=== PATIENT | female | born 1945 | race Caucasian/White ===

== ENCOUNTER 2023-06-28 11:11 | Outpatient (CLI) | payer OTHER, SELFPAY ==
[2023-06-28 18:46] LABS: Hematocrit 40.9 % (37.0-47.0); Hemoglobin 13.1 g/dL (12.0-15.0); Immature Platelet Fraction Pct 21.6 % (0.9-11.2); Mean Corpuscular Hemoglobin 29.4 pg (26-34); Mean Corpuscular Volume 91.9 fl (80-100); Mean Platelet Volume 15.1 fl (7.4-10.4); Red Blood Count 4.45 M/mm3 (4.2-5.4); Red Cell Distribution Width 12.3 % (11.5-14.5); White Blood Count 3.9 K/mm3 (4.5-10.0)
[2023-06-28 18:56] LABS: Alanine Aminotransferase 19 U/L (6-35); Albumin Level 4.7 g/dL (3.5-5.1); Alkaline Phosphatase 91 U/L (38-126); Anion Gap 7 mmol/L (4-12); Aspartate Amino Transferase 34 U/L (14-36); Bilirubin,Total 0.7 mg/dL (0.2-1.3); Blood Urea Nitrogen 19 mg/dL (7-17); Calcium 9.6 mg/dL (8.4-10.2); Carbon Dioxide 25 mmol/L (22-30); Chloride 105 mmol/L (98-107); Estimated Glomerular Filt Rate > 60; Glucose 106 mg/dL (65-110); Potassium 4.4 mmol/L (3.4-5.0); Sodium 137 mmol/L (137-145)
[2023-06-28 19:11] LABS: Platelet Count Result 17 k/mm3 (150-375)
== END 2023-06-28 11:12 | disposition home or self-care (01) ==
PROVIDERS: PCP Nurse Practitioner Adult Health; Visit Provider Nurse Practitioner Adult Health
DX: R53.83 Other fatigue (principal)
CPT/HCPCS: 36415; 80053; 84443; 85027; 85055

== ENCOUNTER 2023-06-29 08:18 | Outpatient (CLI) | payer OTHER, SELFPAY ==
[2023-06-29 20:01] LABS: Hematocrit 39.9 % (37.0-47.0); Hemoglobin 12.8 g/dL (12.0-15.0); Immature Platelet Fraction Pct 21.1 % (0.9-11.2); Mean Corpuscular HGB Conc 32.1 g/dl (32-36); Mean Corpuscular Hemoglobin 29.8 pg (26-34); Mean Corpuscular Volume 92.8 fl (80-100); Mean Platelet Volume 14.9 fl (7.4-10.4); Red Cell Distribution Width 12.6 % (11.5-14.5); White Blood Count 4.2 K/mm3 (4.5-10.0)
[2023-06-29 20:56] LABS: Platelet Count Result 15 k/mm3 (150-375)
[2023-06-29 21:05] LABS: Lymphocytes Absolute Manual 1.76 K/mm3 (1.1-4.5); Monocytes Absolute Manual 0.29 K/mm3 (0.1-0.90); Monocytes Percent Manual 7 % (3-9); Neutrophils Percent Manual 51 % (46-73); Platelet Estimate Decreased (Adequate); Total Cells Counted 100
[2023-06-29 21:06] LABS: Schistocytes None Seen
== END 2023-06-29 08:19 | disposition home or self-care (01) ==
LOC: ANHBWCLAB 08:19
PROVIDERS: PCP Nurse Practitioner Adult Health; Visit Provider Nurse Practitioner Adult Health
DX: D69.6 Thrombocytopenia, unspecified (principal)
CPT/HCPCS: 36415; 85025; 85055

== ENCOUNTER 2024-01-03 11:51 | Outpatient (CLI) | payer OTHER, SELFPAY ==
[2024-01-03 19:13] LABS: Hematocrit 39.1 % (37.0-47.0); Hemoglobin 12.7 g/dL (12.0-15.0); Immature Platelet Fraction Pct 18.8 % (0.9-11.2); Mean Corpuscular HGB Conc 32.5 g/dl (32-36); Mean Corpuscular Hemoglobin 30.7 pg (26-34); Mean Corpuscular Volume 94.4 fl (80-100); Mean Platelet Volume 13.5 fl (7.4-10.4); Platelet Count Result 28 k/mm3 (150-375); Red Blood Count 4.14 M/mm3 (4.2-5.4); Red Cell Distribution Width 11.8 % (11.5-14.5); White Blood Count 4.6 K/mm3 (4.5-10.0)
[2024-01-03 19:33] LABS: Alanine Aminotransferase 16 U/L (6-35); Albumin Level 4.4 g/dL (3.5-5.1); Alkaline Phosphatase 91 U/L (38-126); Anion Gap 3 mmol/L (4-12); Aspartate Amino Transferase 34 U/L (14-36); Bilirubin,Total 0.7 mg/dL (0.2-1.3); Blood Urea Nitrogen 19 mg/dL (7-17); Calcium 9.9 mg/dL (8.4-10.2); Carbon Dioxide 31 mmol/L (22-30); Chloride 104 mmol/L (98-107); Estimated Glomerular Filt Rate > 60; Glucose 114 mg/dL (65-110); Potassium 4.4 mmol/L (3.4-5.0); Sodium 138 mmol/L (137-145)
== END 2024-01-03 11:52 | disposition home or self-care (01) ==
PROVIDERS: PCP Nurse Practitioner Adult Health; Visit Provider Nurse Practitioner Adult Health
DX: D69.6 Thrombocytopenia, unspecified (principal)
CPT/HCPCS: 36415; 80053; 85027; 85055

== ENCOUNTER 2024-07-04 13:29 | Outpatient (CLI) | payer OTHER, SELFPAY ==
--- OUTSIDE RECORDS SUMMARY | 2024-07-04 13:41 | XMS_ITS | Encounter Summary ---
Author Organization [facility] Address [address] [place] [address] Phone Care Team Providers Care Brass Molder Helper Name Role Phone Lisa Lanier NP Primary Care Provider [phone] Encounter Details Date Type Department Care Team (Late st Contact Info) Description 08/17/2023 Telephone [facility] Oncology [address] [place] [address] Medical [facility] B [address] [phone] Eleuterio Capps MD [address] [place] [id number] Social History Tobacco Use Types Packs/Day Years Used Date Smoking Tobacco: Never Smokeless Tobacco: Never AUDIT-C Answer Date Recorded Q1: How often do you have a drink containing alcohol? Never 07/29/2023 Q2: How many drinks containi ng alcohol do you have on a typical day when you are drinking? Patient does not drink Q3: How often do you have si x or more drinks on one occasion? Never 07/29/2023 Personal Safety Answer Date Recorded Have you ever been in or are you currently in a harmful physical or emotional relationship or is someone making you feel afraid or unsafe? 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
--- OUTSIDE RECORDS SUMMARY | 2024-07-04 13:41 | XMS_ITS | Referral Summary ---
Author Organization [facility] Address [address] [place] [address] Care Team Providers Care Security Advisor Name Role Phone Lisa Lanier NP Primary Care Provider [phone] Allergies Active Allergy Reactions Criticality Noted Date Comments Scallops Hives,Shortness of breath High 05/25/2019 Medications sertraline (ZOLOFT) 100 mg tablet Take 1 tablet (100 mg total) by mouth daily Active benzonatate (TESSALON) 100 mg capsuleIndicatio ns:Cough Take 1 capsule (100 mg total) by mouth every 8 (eight) hours 21 capsule 05/25/2019 Active azithromycin (ZITHROMAX) 250 mg tablet Take 2 tablets the first day, then 1 tablet daily for 4 days 6 tablet 05/25/2019 Active cyanocobalamin (Vitamin B-12) 100 mcg tabletIndication s:Prevention of Vitamin B12 Deficiency Take 1 tablet (100 mcg total) by mouth daily Active ascorbic acid (ascorbic acid with landy hips) 500 mg tablet,chewable Take 1 tablet/chew tab (500 mg total) by mouth 3 (three) times a day Active cholecalciferol (VITAMIN D-3) 3,000 unit tablet Take 0.025 tablets (75 Units total) by mouth daily Active lactobacillus combination no.4 3 billion cell capsule Take 3 billion CFU/mL by mouth daily Active melatonin 5 mg tablet Take 1 tablet (5 mg total) by mouth daily Active Active Problems Problem Noted Date Diagnosed Date Thrombocytopenia 07/29/2023 Social History Tobacco Use Types Packs/Day Years [...] on file 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 Advance Directives For more information, please contact: [phone] Documents on File Type Date Recorded Patient Chemical Engineer Expl anation ADVANCE DIRECTIVE 08/02/2023 7:51 AM POWER OF BELT SANDER FOR HEALTH CARE Care Teams Security Advisor Relationship Specialty Start Date End Date Lisa Lanier NP [address] [place] [id number] PCP - General Nurse Practitioner 06/30/23
--- OUTSIDE RECORDS SUMMARY | 2024-07-04 13:41 | XMS_ITS | Clinical Summary ---
Author Organization [facility] Address [address] [place] [address] Care Team Providers Care Home Restoration Service Supervisor Name Role Phone Lisa Lanier NP Primary Care Provider [phone] Allergies Active Allergy Reactions Criticality Noted Date [...] Problem Noted Date Diagnosed Date Thrombocytopenia 07/29/2023 Surgical History Surgery Date Site/Laterality Comments HYSTERECTOMY Medical History Medical History Date Comments Anxiety Depression COPD (chronic obstructive pulmonary disease) (HC C) Seizures (HCC) Thrombocytopenia Thrombocytopenia Thrombocytopenia Social History Tobacco Use Types Packs/Day Years [...] on file 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 Gender Identity Not on file Sexual Orientation Not on file Obstetrics History Last Filed Vital Signs Vital Sign Reading [...] 10/25/2023 10:13 AM CDT Plan of Treatment Health Maintenance Due Date Last Done Comments Depression Screening 1945 Fall Risk Assessment 1945 Osteoporosis Screening-Bone Density Scan 1945 Hepatitis B Screening 11/08/1961 Pneumococcal vaccine 65+ (1 of 1 - PCV) 11/08/1993 10/19/1993 Zoster Vaccine (1 of 2) 11/08/1993 Well Visit 65+ 11/08/2008 DTaP/Tdap/Td Vaccine (2 - Td or Tdap) 05/23/2017 05/24/2007 Covid-19 Vaccine (3 - 2023-2 5 season) 2023 10/21/2020, 09/23/2020 Influenza Vaccine (Season Ended) 2024 11/07/2010, 10/23/2008, 01/01/2008, Additional history exists Insurance [facility] Advance Directives For more information, please contact: [phone] Documents on File Type Date Recorded Patient Caseworker Expl anation ADVANCE DIRECTIVE 08/02/2023 7:51 AM POWER OF DOCTOR OSTEOPATHIC FOR HEALTH CARE Care Teams Home Restoration Service Supervisor Relationship Specialty Start Date End Date Lisa Lanier NP [address] [place] [id number] PCP - General Nurse Practitioner 06/30/23
--- OUTSIDE RECORDS SUMMARY | 2024-07-04 13:41 | XMS_ITS | Continuity of Care Document ---
Author Name [facility] Organization [facility] Care Team Providers Care Consumer Relations Complaint Clerk Name Role Phone [facility] Unavailable Unavailable Problems Combined list of problems from Department of Defense and Veterans Affairs facilities. It does not include entries that were removed or entered in error. Problem Status Onset Date Problem Type Date of Resolution Comments Source Skin Lesion Active [address] [facility] Pneumonia Inactive 993 Condition 02/07/[address] [facility] Atrial flutter/ fibrillation Inactive 993 Condition 10/30/1993 May 24, 1994 Entered By: TANI HARRELL Comment: Chronic anticoagulation by PMDApr 1994 Entered By: TANI HARRELL Comment: Chemical ConversionApr 1994 Entered By: TANI HARRELL Comment: Done at [facility] 9-93Apr 1994 Entered By: TANI HARRELL Comment: Converted to sinus rhythm with Quinaglute and Digoxin [facility] Dysphagia Inactive 993 Condition 09/07/1993 May 24, 1994 Entered By: TANI HARRELL Comment: Esophageal motility study- negativeApr 1994 Entered By: TANI HARRELL Comment: S/P upper endoscopyApr 1994 Entered By: TANI HARRELL Comment: Small hiatal hernia [facility] S/P JENNA Inactive 989 Condition May 24, 1994 Entered By: TANI HARRELL Comment: Fibroid Uterus [facility] Allergies * (ICD-9-CM 995.3) Active Condition [facility] BENIGN NEOPLASM LG BOWEL Active Condition [facility] Cardiac dysrhythmia Active Condition [facility] CATARACT NOS Active Condition [facility] Cough (SNOMED CT 11336569) Active Condition [facility] Family history of glaucoma Active Condition [facility] Female stress incontinence Active Condition [facility] Hemorrhoids Active Condition [facility] NEUROTIC DEPRESSION Active Condition [facility] Obesity * (ICD-9-CM 278.00) Active Condition [facility] OSTEOARTHROS NOS-SHLDER Active Condition [facility] Osteoarthrosis involving or with mention of multiple sites, but not specified as Active Condition [facility] OTHER DISORDER BLADDER Active Condition [facility] Other insomnia Active Condition [facility] PARTIAL HYSTERECTOMY Active Condition [facility] Schizoid Personality Disorder Active Condition [facility] Thrombocytopenia Active Condition [facility] Urgency of urination (ICD-9-CM 788.63) Active Condition [facility] Vaginitis Active Condition [facility] Traumatic brain injury Inactive Condition 01/02/2018 Jan 02, 2018 Entered By: CYN CASEY Comment: distant hx of childhood fall down steps w/subsequent seizures [facility] Diagnosis: ICD-10-CM F33.0 Major depressive disorder, recurrent, mild Active Diagnosis [facility] Diagnosis: ICD-10-CM F33.1 Major depressive disorder, recurrent, moderate Active Diagnosis [facility] Medications Combined list of outpatient medications from Department of Defense and Veterans Affairs facilities.Medications provided include 1) outpatient medications from the last 15 months, and 2) patient-reported medications. Medication Details Route Status Patient Instructions Prescription Expires Prescription Number Last Dispense Date Ordering Provider Order Date Order Qty Source PREDNISONE 10MG TAB TAKE ONE TABLET BY MOUTH ONCE A DAY ORAL ACTIVE CYN CASEY 2023 [facility] Allergies, Adverse Reactions, Alerts Combined list of allergies from Department of Defense and Veterans Affairs facilities. It does not include entries that were removed or entered in error. Substance Category Reaction Severity Reaction type Status Date Reported Comments Source MOLD Propensity to adverse reaction (finding) active 12/27/[address] [facility] Immunizations Combined list of available immunizations from the Department of Defense and Veterans Affairs facilities. Immunization Series Date Given Administered By Site Reaction Lot Number CVX Code Drug [facility] Nurse Status Comments Source INFLUENZA, UNSPECIFIED FORMULATION 2010 88 complet ed [facility] INFLUENZA, UNSPECIFIED FORMULATION 2008 88 complet ed [facility] INFLUENZA, UNSPECIFIED FORMULATION 2007 88 complet ed [facility] TDAP 2007 115 complet ed Left Deltoid [facility] INFLUENZA, UNSPECIFIED FORMULATION 2007 88 complet ed [facility] INFLUENZA, UNSPECIFIED FORMULATION 2003 88 complet ed [facility] INFLUENZA, UNSPECIFIED FORMULATION 2002 88 complet ed [facility] INFLUENZA, UNSPECIFIED FORMULATION 2002 88 complet ed [facility] INFLUENZA (HISTORICAL) 1997 ISELA PEPE 88 comple t ed [facility] INFLUENZA (HISTORICAL) 1995 ROMÁN RODRIGUEZ 88 complet ed [facility] PNEUMOCOCCAL, UNSPECIFIED FORMULATION 1993 ISELA LEDEZMA 109 complet ed [facility] Encounters Combined list of: 1) Encounters from Department of Veterans Affairs facilities going backup to the last 18 months, not all VA inpatient encounters are included; 2) Encounters from the Department of [facility] facilities going backup to 280 months. Location Location Details Encounter Type Encounter Number Reason For Visit Attending Provider ADM Date DC Date Status Disposition Source [facility] Outpatient Encounter [id number] Diagnos is: ICD-10- CM F33.1 Major depress isidra disorde r, recurre nt, moderat e CYN CASEY 01/07 [facility] Outpatient Encounter [id number] 01/10 [facility] Outpatient Encounter [id number] 01/11 [facility] O/P EST LOW 20 MIN [id number] Diagnos is: ICD-10- CM F33.0 Major depress isidra disorde r, recurre nt, mild LIPSCHITZ, CYN 04/11 [facility] Outpatient Encounter [id number] 04/13 [facility] Outpatient Encounter [id number] 04/14 [facility] O/P EST LOW 20 MIN [id number] Diagnos is: ICD-10- CM F33.0 Major depress isidra disorde r, recurre nt, mild LIPSCHITZ, CYN 06/13 [facility] Outpatient Encounter [id number] Diagnos is: ICD-10- CM F33.0 Major depress isidra disorde r, recurre nt, mild LIPSCHITZ, CYN 08/14 [facility] Outpatient Encounter [id number] 08/14 [facility] O/P EST MOD 30 MIN [id number] Diagnos is: ICD-10- CM F33.1 Major depress isidra disorde r, recurre nt, moderat e LIPSCHITZ, CYN 09/29 [facility] HC PRO PHONE CALL 11-20 MIN [id number] Diagnos is: ICD-10- CM F33.1 Major depress isidra disorde r, recurre nt, moderat e ANNESPERANZA LLRomeo A 10[facility] [id number] 10/02 [facility] Outpatient Encounter [id number] 10/21 [facility] N [facility] Outpatient Encounter [id number] 10/25 [facility] Outpatient Encounter [id number] 12/02 [facility] N [facility] Outpatient Encounter [id number] 12/06 [facility] N [facility] SYNCH AUDIO-ONLY EST LOW 20 [id number] Diagnos is: ICD-10- CM F33.0 Major depress isidra disorde r, recurre nt, mild LIPSCHITZ, CYN 03/07 [facility] Procedures Combined list of: 1) Procedures from Department of Veterans Affairs facilities going back up to thelast 18 months, not all VA non-surgical procedures are included; 2) All procedures from the Department of Defense facilities. Procedure Procedure Type Code Date Perfomer Comments Sourc e VAGINAL HYSTERECTOMY 01/03/1990 [facility] Social History Combined list of available smoking, tobacco, and other social history from Department of Defense and Veterans Affairs facilities. Social History Type Response Date Comment Sourc e Tobacco smoking status NHIS LIFETIME NON-USER OF TOBACCO 03/19/[address] [facility] History of tobacco use LIFETIME NON-USER OF TOBACCO 05/28/[address] [facility] History of tobacco use LIFETIME NON-USER OF TOBACCO 05/09/[address] [facility] History of tobacco use LIFETIME NON-USER OF TOBACCO 12/27/[address] [facility] History of tobacco use LIFETIME NON-USER OF TOBACCO 10/23/[address] [facility] History of tobacco use CURRENT TOBACCO USER 01/01/[address] [facility] History of tobacco use LIFETIME NON-TOBA BRANCH STORE MANAGER USER 09/28/[address] [facility] History of tobacco use LIFETIME NON-TOBA BRANCH STORE MANAGER USER 05/27/[address] [facility] History of tobacco use LIFETIME NON-TOBA BRANCH STORE MANAGER USER 05/28/[address] [facility] History of tobacco use LIFETIME NON-TOBA BRANCH STORE MANAGER USER 10/12/[address] [facility] History of tobacco use CURRENT NON-TOBAC CO USER-HX OF USE 10/28/[address] [facility] This section is an empty social history section. [facility] Plan of Care List of future care activities from Department [facility] facilities. Additional future care activities may be listed in the Assessment and Plan section. Date/Time Care Activity Care Activity Detail Facili ty 07/09/2024 AMBULATORY - PSYCHIATRY AMBULATORY - PSYC HIATRY [facility] Advance Directives List of completed, amended, or rescinded Advance Directives on record at [facility] facilities. An actual copy of the Directive is not included. Date Advance Directive Provider Source 05/28/2002 ADVANCE DIRECTIVE AYAKA CASTRO [facility] 04/24/1996 ADVANCE DIRECTIVE ISELA [facility]
--- OUTSIDE RECORDS SUMMARY | 2024-07-04 13:41 | XMS_ITS | Clinical Summary ---
Author Organization [facility] Address [address] [place] [address] Care Team Providers Care Tractor Trailer Driver Name Role Phone Unavailable Primary Care Provider Unavailabl e Source Comments [facility] [employer],non-owned Affiliates and Associated Physician Practices is amultiple site organization consisting of ambulatory clinics and hospital sitesin [place], [place], [place]. This disclosure is being madepursuant to the Care Everywhere program and may not contain all information available regarding this patient. Last updated 17.[facility] [employer] Allergies No known active allergies Medications * Be aware that medications may not be up to date on this document. Alwaysverify current medications with the patient. Sertraline HCl (ZOLOFT PO) Take 50 mg by mouth Active Docusate Sodium (COLACE PO) Take 100 mg by mouth Active albuterol HFA (PROVENTIL;VENT KIMBERLI;PROAIR) 108 (90 BASE) MCG/ACT inhaler Inhale 2 puffs by mouth every 6 hours as needed for Shortness of Breath, Wheezing or Cough 1 Inhaler 9 Active Social History Tobacco Use Types Packs/Day Years Used Date Smoking Tobacco: Never Smokeless Tobacco: Never Comments Unknown Sex and Gender Information Value Date Recorded Sex Assigned at Not on file Legal Sex Female 2:05 PM HOTEL SERVICES SALES REPRESENTATIVE Gender Identity Not on file Sexual Orientation Not on file Last Filed Vital Signs Vital Sign Reading Time Taken Comments Blood Pressure 136/80 02/08/2018 2:12 PM HOTEL SERVICES SALES REPRESENTATIVE Pulse 85 02/08/2018 2:12 PM HOTEL SERVICES SALES REPRESENTATIVE Temperature 36.4 C (97.6 F) 02/08/2018 2:12 PM HOTEL SERVICES SALES REPRESENTATIVE Respiratory Rate - - Oxygen Saturation 94% 02/08/2018 2:12 PM HOTEL SERVICES SALES REPRESENTATIVE Inhaled Oxygen Concentration - - Weight 90.7 kg (200 lb) 02/08/2018 2:12 PM HOTEL SERVICES SALES REPRESENTATIVE Height 172.7 cm (5' 8) 02/08/2018 2:12 PM HOTEL SERVICES SALES REPRESENTATIVE Body Mass Index 30.41 02/08/2018 2:12 PM HOTEL SERVICES SALES REPRESENTATIVE Plan of Treatment Health Maintenance Due Date Last Done Comments BONE DENSITY TESTING 1945 DTAP/TDAP/TD VACCINES (1 - Tdap) 11/08/1962 PNEUMOCOCCAL VACCINE 50+ (1 of 1 - PCV) 11/08/1993 ZOSTER VACCINE (1 of 2) 11/08/1993 Respiratory Syncytial Virus (RSV) Vaccine Pt: or over 60 yrs (1 - 1-dose 75+ series) 11/08/2018 COVID-19 VACCINE (1 - 2023-2 5 season) 2023 DEPRESSION SCREENING 02/08/2024 INFLUENZA VACCINE (Season Ended) 2024 HEPATITIS B VACCINE Aged Out No longe r eligible based on patient's age to complete this topic HIB VACCINE Aged Out No longer eligi ble based on patient's age to complete this topic HPV VACCINE Aged Out No longer eligi ble based on patient's age to complete this topic MENINGOCOCCAL (Group B) VACC INE SHARED DECISION-MAKING Aged Out No longer eligibl e based on patient's age to complete this topic MENINGOCOCCAL GROUPS A/C/Y/W VACCINE Aged Out No longer eligible b ased on patient's age to complete this topic Insurance MEDICARE MEDICARE
[2024-07-04 19:36] LABS: Basophils Percent Auto 0.5 % (0.2-1.2); Hematocrit 39.2 % (37.0-47.0); Hemoglobin 12.4 g/dL (12.0-15.0); Immature Granulocyte Absolute 0.01 K/mm3 (0.00-0.031); Immature Granulocyte Percent A 0.3 % (0-0.5); Immature Platelet Fraction Pct 9.9 % (0.9-11.2); Lymphocytes Absolute Auto 1.08 K/mm3 (0.9-3.2); Lymphocytes Percent Auto 27.6 % (18.3-44.2); Mean Corpuscular HGB Conc 31.6 g/dl (32-36); Mean Corpuscular Hemoglobin 29.7 pg (26-34); Mean Platelet Volume 12.8 fl (7.4-10.4); Monocytes Absolute Auto 0.3 K/mm3 (0.1-0.6); Monocytes Percent Auto 7.7 % (2.6-8.5); Neutrophils Absolute Auto 2.5 K/mm3 (1.3-6.7); Neutrophils Percent Auto 63.9 % (45.5-73.1); Platelet Count Result 33 k/mm3 (150-375); Red Blood Count 4.17 M/mm3 (4.2-5.4); Red Cell Distribution Width 12.7 % (11.5-14.5); White Blood Count 3.9 K/mm3 (4.5-10.0)
[2024-07-04 19:57] LABS: Alanine Aminotransferase 18 U/L (6-35); Albumin Level 4.3 g/dL (3.5-5.1); Alkaline Phosphatase 82 U/L (38-126); Anion Gap 5 mmol/L (4-12); Aspartate Amino Transferase 34 U/L (14-36); Bilirubin,Total 0.7 mg/dL (0.2-1.3); Blood Urea Nitrogen 16 mg/dL (7-17); Calcium 9.6 mg/dL (8.4-10.2); Carbon Dioxide 27 mmol/L (22-30); Chloride 105 mmol/L (98-107); Estimated Glomerular Filt Rate > 60; Glucose 98 mg/dL (65-110); Potassium 4.4 mmol/L (3.4-5.0); Sodium 137 mmol/L (137-145)
[2024-07-04 20:23] LABS: Hypochromasia 1+; Platelet Estimate Decreased (Adequate)
[2024-07-04 20:24] LABS: Band Neutrophils Percent 0 % (0-6); Schistocytes None Seen
== END 2024-07-04 13:30 | disposition home or self-care (01) ==
PROVIDERS: PCP Nurse Practitioner Adult Health; Visit Provider Nurse Practitioner Adult Health
DX: D69.6 Thrombocytopenia, unspecified (principal); Z86.19 Personal history of other infectious and parasitic diseases; Z20.828 Contact with and (suspected) exposure to other viral communicable diseases
CPT/HCPCS: 36415; 80053; 85025; 85055; 86695; 86696